=== PATIENT | female | born 1935 | race Caucasian/White ===

== ENCOUNTER → 2017-05-26 | Outpatient (CLI) | payer OTHER ==
[2015-11-03 21:06] VITALS: BP 125/70
[~2017-05-26] MED LIST: ACID REFLUX MED; ALPR0.25 PO; CHOLESTEROL MED; HYPERTENSION MED
--- NOTE | 2017-05-26 09:31 | RAD ---
Examination: Ultrasound left buttock History: History of left buttock lump Comparison: None available Findings: There is a 1.2 x 1.4 x 0.6 cm hypoechoic mass identified in the subcutaneous region of the left buttock with minimal blood flow around the lesion. There is no evidence of blood flow within the lesion. Impression: 1. 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 Close follow-up examination may be considered to document stability.
== END | disposition home or self-care (01) ==
LOC: US 07:38
PROVIDERS: ATTEND Physician Assistant Medical
DX: R22.2 Localized swelling, mass and lump, trunk (principal)
CPT/HCPCS: 76881

== ENCOUNTER → 2018-07-03 | Outpatient (CLI) | payer OTHER ==
[2015-11-03 21:06] VITALS: BP 125/70
--- NOTE | 2018-07-09 12:33 | RAD ---
DATE: 07/09/2018 EXAM: MAMMO SHANKAR SCREENING BILATERAL HISTORY: Routine screening COMPARISON: Previous mammogram from 2017 and 2014 This study was interpreted with the benefit of Computerized Aided Detection (CAD). FINDINGS: Breast Density: SCATTERED The breast parenchyma shows scattered fibroglandular densities. Breast parenchyma level B. The skin and nipples are within normal limits. Benign-appearing bilateral calcifications. Stable central right breast nodular density. No suspicious calcifications, spiculated mass or area of architectural distortion. IMPRESSION: No mammographic evidence mines. Stable mammogram. BI-RADS CATEGORY: 2 BENIGN FINDING(S) RECOMMENDED FOLLOW-UP: 12M 12 MONTH FOLLOW-UP PQRS compliance statement: Patient information was entered into a reminder system with a target due date for the next mammogram. Mammography is a sensitive method for finding small breast cancers, but it does not detect them all and is not a substitute for careful clinical examination. A negative mammogram does not negate a clinically suspicious finding and should not result in delay in biopsying a clinically suspicious abnormality. "Our facility is accredited by the [employer] Mammography [employer]."
== END | disposition home or self-care (01) ==
LOC: MAMMO 13:41
PROVIDERS: ATTEND Physician Assistant Medical
DX: Z12.31 Encounter for screening mammogram for malignant neoplasm of breast (principal)
CPT/HCPCS: 77063; 77067

== ENCOUNTER → 2019-07-04 | Outpatient (CLI) | payer OTHER ==
[2015-11-03 21:06] VITALS: BP 125/70
--- NOTE | 2019-07-05 16:42 | RAD ---
DATE: 07/04/2019. EXAM: MAMMO SHANKAR SCREENING BILATERAL. HISTORY: Routine mammographic screening. COMPARISON: 07/03/2018. This study was interpreted with the benefit of Computerized Aided Detection (CAD). FINDINGS: Breast Density: FATTY The breast parenchyma is primarily fatty replaced. Breast parenchyma level density A.. A small nodule superiorly on the right is stable. Vascular calcifications are benign. There are no suspicious masses, microcalcifications or architectural distortion. BI-RADS CATEGORY: 2 BENIGN FINDING(S). RECOMMENDED FOLLOW-UP: 12M 12 MONTH FOLLOW-UP. PQRS compliance statement: Patient information was entered into a reminder system with a target due date 07/04/2020 for the next mammogram. Mammography is a sensitive method for finding small breast cancers, but it does not detect them all and is not a substitute for careful clinical examination. A negative mammogram does not negate a clinically suspicious finding and should not result in delay in biopsying a clinically suspicious abnormality. "Our facility is accredited by the [employer] Mammography [employer]."
== END | disposition home or self-care (01) ==
LOC: MAMMO 13:04
PROVIDERS: ATTEND Physician Assistant Medical
DX: Z12.31 Encounter for screening mammogram for malignant neoplasm of breast (principal); N63.10 Unspecified lump in the right breast, unspecified quadrant
CPT/HCPCS: 77063; 77067

== ENCOUNTER 2019-10-07 11:33 | Emergency (ER) | payer MEDICARE, OTHER ==
[~2019-10-07] VITALS: Ht 160 cm; Wt 67.8 kg
--- NOTE | 2019-10-07 12:05 | PHYS DOC ---
Past History Past Medical History: Anxiety, Cancer, Hypertension, Other Additional Past Medical Histor: RECENT KIDNEY INFECTION/UTI Past Surgical History: Cancer Surgery, Hysterectomy, Other Additional Past Surgical Histo: RIGHT HIP Alcohol Use: Rarely Drug Use: None Adult General Chief Complaint Chief Complaint: MECHANICAL FALL HPI HPI 83-year-old female presents after fall at home. The patient has had a UTI rece ntly and is taking Cipro from her primary care physician. She is mostly. Bed the last 3 days. Today she was feeling a bit stronger, so she got up and was walking. She is taking small steps and was feeling okay when she fell. She is not sure if she got dizzy, passed out, or was just weak. She just remembers that she was falling that she in up on the floor. She fell against some statues on her way down and knocked him over. She is complaining of some bilateral low back pain. She continues to feel generally weak. She does not believe she hit her head. She is not on any blood thinners or anti-platelet medications. Review of Systems Review of Systems Constitutional: Fall. Denies fever or chills [] Eyes: Denies change in visual acuity, redness, or eye pain [] HENT: Denies nasal congestion or sore throat [] Respiratory: Denies cough or shortness of breath [] Cardiovascular: No additional information not addressed in HPI [] GI: Denies abdominal pain, nausea, vomiting, bloody stools or diarrhea [] : Denies dysuria or hematuria [] Musculoskeletal: Low back pain. [] Integument: Denies rash or skin lesions [] Neurologic: Denies headache, focal weakness or sensory changes [] Endocrine: Denies polyuria or polydipsia [] All other systems were reviewed and found to be within normal limits, except as documented in this note. Allergies Allergies Allergies Coded Allergies Type Severity Reaction Last Updated Verified Sulfa (Sulfonamide Antibiotics) Allergy Intermediate 03/11/16 Yes diazepam Allergy Intermediate 03/11/16 Yes promethazine Allergy Intermediate 03/11/16 Yes Physical Exam Physical Exam Constitutional: Well developed, well nourished, no acute distress, non-toxic appearance. [] HENT: Normocephalic, atraumatic, bilateral external ears normal, oropharynx moist, no oral exudates, nose normal. [] Eyes: PERRLA, EOMI, conjunctiva normal, no discharge. [] Neck: Normal range of motion, no tenderness, supple, no stridor. [] Cardiovascular:Heart rate regular rhythm, no murmur [] Lungs & Thorax: Bilateral breath sounds clear to auscultation [] Abdomen: Bowel sounds normal, soft, mild epigastric tenderness, no masses, no pulsatile masses. [] Skin: Warm, dry, no erythema, no rash. [] Back: Bilateral lumbar tenderness [] Extremities: No tenderness, no cyanosis, no clubbing, ROM intact, no edema. [] Neurologic: Alert and oriented X 3, normal motor function, normal sensory function, no focal deficits noted. [] Psychologic: Affect normal, judgement normal, mood normal. [] Current Patient Data Vital Signs Vital Signs Date Time Temp Pulse Resp B/P (MAP) Pulse Ox O2 Delivery O2 Flow Rate FiO2 10/07/19 11:40 98.3 84 24 134/62 (86) 93 Room Air EKG EKG Sinus rhythm, rate 79, normal axis, no ST elevations or depressions.[] Radiology/Procedures Radiology/Procedures [] Impressions: EXAM: 1. Chest one view. 2. Lumbar spine 3 views. HISTORY: Fall. COMPARISON: 01/27/2012. FINDINGS: An opacity in the right cardiophrenic angle and the left costophrenic angle correspond with an epicardial fat pads on prior CT. There are no confluent infiltrates. There is no pneumothorax or clear pleural effusion. The heart is at the upper limits of normal size. The aorta is calcified and tortuous. There is mild left glenohumeral osteoarthritis. There is a mild lumbar levoscoliosis. There is slight superior plate depression at T11, likely developmental or chronic. Degenerative disc disease is moderate to severe at L3-4 and mild at other lumbar levels. Facet osteoarthritis is moderate to severe from L3 through S1. IMPRESSION: 1. Borderline cardiomegaly. No confluent infiltrates. 2. Degenerative disc disease is moderate to severe at L3-4 and mild elsewhere in the lumbar spine. 3. Mild superior plate depression at T11 is likely chronic. Correlate for focal tenderness. Electronically signed by: Martínez Hackett MD (10/07/2019 12:51 PM) [facility] DICTATED AND SIGNED BY: BILL HACKETT MD DATE: 10/07/19 [id number] CC: KODY DE LA CRUZ DO; SAM SINGER ~ Course & Med Decision Making Course & Med Decision Making Pertinent Labs and Imaging studies reviewed. (See chart for details) The patient's labs are unremarkable. Her EKG is unremarkable. Her chest x-rays negative for acute findings. Her lumbar x-ray shows some mild endplate narrowing at T11. This is seen is likely chronic. She is other degenerative change in the lumbar spine. I believe the patient just has a strain of her lumbar due to her fall. I will give her pain medication for home. She is stable for discharge at this time. [] Dragon Disclaimer Dragon Disclaimer This electronic medical record was generated, in whole or in part, using a voice recognition dictation system. Departure Departure: Impression: Primary Impression: Fall Additional Impression: Lumbar strain Disposition: HOME, SELF-CARE Condition: STABLE Referrals: SAM SINGER (PCP) Patient Instructions: Low Back Strain with Rehab-[facility] Scripts Hydrocodone Bit/Acetaminophen (NORCO 5-325 TABLET) 1 Each Tablet 1 TAB PO PRN Q6HRS PRN for PAIN, #10 TAB 0 Refills Prov: KODY DE LA CRUZ DO 10/07/19 Problem Qualifiers Primary Impression: Fall Encounter type: initial encounter Qualified Codes: W19.XXXA - Unspecified fall, initial encounter Additional Impression: Lumbar strain Encounter type: initial encounter Qualified Codes: S39.012A - Strain of muscle, fascia and tendon of lower back, initial encounter KODY DE LA CRUZ DO Oct 07, 2019 12:05
[2019-10-07 12:18] LABS: BASO % 0 % (0-3); EOS % 0 % (0-3); HEMATOCRIT 37.8 % (36.0-47.0); HEMOGLOBIN 12.3 g/dL (12.0-15.5); LYMPH # 1.2 x10^3/uL (1.0-4.8); LYMPH % 11 % (24-48); MEAN CORPUSCULAR HEMOGLOBIN 29 pg (25-35); MEAN CORPUSCULAR HGB CONC 33 g/dL (31-37); MEAN CORPUSCULAR VOLUME 89 fL (79-100); MONO # 0.9 x10^3/uL (0.0-1.1); MONO % 8 % (0-9); NEUT # 9.4 x10^3uL (1.8-7.7); NEUT % 81 % (31-73); PLATELET COUNT 216 x10^3/uL (140-400); RED BLOOD COUNT 4.28 x10^6/uL (3.50-5.40); WHITE BLOOD COUNT 11.5 x10^3/uL (4.0-11.0)
--- NOTE | 2019-10-07 12:21 | EKG ---
[address] [address] Test Date: 2019-10-07 Test Time: 12:09:57 Pat Name: NANDA ERAZO Department: Room: Gender: F Teacher Tutor: : 1935 Requested By: KODY DE LA CRUZ Order Number: [id number] Reading MD: Measurements Intervals [facility] Rate: 79 P: 42 CA: 168 QRS: -8 QRSD: 82 T: 24 QT: 356 QTc: 409 Interpretive Statements SINUS RHYTHM ATRIAL PREMATURE COMPLEX(ES) LEFTWARD AXIS OTHERWISE NORMAL ECG RI6.01 No previous ECG available for comparison
[2019-10-07 12:25] LABS: CALCIUM 8.3 mg/dL (8.5-10.1); CREATININE 0.9 mg/dL (0.6-1.0); GFR 59.8; POTASSIUM 3.2 mmol/L (3.5-5.1)
[2019-10-07 12:31] LABS: ALBUMIN 3.1 g/dL (3.4-5.0); ALBUMIN/GLOBULIN RATIO 0.9 (1.0-1.7); TOTAL BILIRUBIN 1.1 mg/dL (0.2-1.0); TOTAL PROTEIN 6.7 g/dL (6.4-8.2)
--- NOTE | 2019-10-07 12:54 | RAD ---
EXAM: 1. Chest one view. 2. Lumbar spine 3 views. HISTORY: Fall. COMPARISON: 01/27/2012. FINDINGS: An opacity in the right cardiophrenic angle and the left costophrenic angle correspond with an epicardial fat pads on prior CT. There are no confluent infiltrates. There is no pneumothorax or clear pleural effusion. The heart is at the upper limits of normal size. The aorta is calcified and tortuous. There is mild left glenohumeral osteoarthritis. There is a mild lumbar levoscoliosis. There is slight superior plate depression at T11, likely developmental or chronic. Degenerative disc disease is moderate to severe at L3-4 and mild at other lumbar levels. Facet osteoarthritis is moderate to severe from L3 through S1. IMPRESSION: 1. Borderline cardiomegaly. No confluent infiltrates. 2. Degenerative disc disease is moderate to severe at L3-4 and mild elsewhere in the lumbar spine. 3. Mild superior plate depression at T11 is likely chronic. Correlate for focal tenderness. Electronically signed by: Martínez Hackett MD (10/07/2019 12:51 PM) [facility]
[2019-10-07] MEDS ORDERED: ONDANSETRON PF 4 MG/2 ML VIAL. IVP ONE (13:00)
[2019-10-07 13:32] VITALS: BP 88/57
[2019-10-07 14:12] LABS: BILIRUBIN,URINE NEG (NEG); CLARITY,URINE CLOUDY; COLOR,URINE YELLOW; GLUCOSE,URINE NEG (NEG)
[2019-10-07 14:13] LABS: BACTERIA,URINE FEW /HPF (0-FEW); NITRITE,URINE NEG (NEG); SQUAMOUS EPITHELIAL CELL,UR MANY /LPF
[2019-10-07] MEDS ORDERED: HYDR-3165 PO (14:19)
[2019-10-07] MEDS ORDERED: HYDROcodone/APAP 5/325MG 1 TAB TABLET ONE (14:24)
[2019-10-07] MEDS ORDERED: HYDROcodone/APAP 5/325MG 1 TAB TABLET PO ONE (14:30)
== END 2019-10-07 14:22 | disposition home or self-care (01) ==
LOC: ER 11:33
DX: S39.012A Strain of muscle, fascia and tendon of lower back, initial encounter (principal); M51.36 Other intervertebral disc degeneration, lumbar region; I10 Essential (primary) hypertension; Z90.710 Acquired absence of both cervix and uterus; Z98.890 Other specified postprocedural states; Z88.2 Allergy status to sulfonamides; Z88.8 Allergy status to other drugs, medicaments and biological substances; W18.39XA Other fall on same level, initial encounter; Y93.89 Activity, other specified; Y92.89 Other specified places as the place of occurrence of the external cause; Y99.8 Other external cause status
CPT/HCPCS: 36415; 71045; 72100; 80053; 81001; 84484; 85025; 93005; 96374; 96375; 99285; J2405; J3010

== ENCOUNTER 2019-10-11 10:41 | Inpatient (IN) | payer MEDICARE ==
[~2019-10-11 10:41] MED LIST changes: +HYDR-3165 PO
[2019-10-11 11:07] VITALS: BP 164/70
[2019-10-11] MEDS ORDERED: ONDANSETRON PF 4 MG/2 ML VIAL. IVP PRN (11:30)
[2019-10-11] MEDS: MORPHINE SULFATE 4 MG/ML DISP.SYRIN. IV PRN ×3 (11:47→21:33)
[2019-10-11] MEDS ORDERED: CHOL400C2 PO (12:08)
[2019-10-11] MEDS ORDERED: OMEP40CA45 PO (12:08)
[2019-10-11] MEDS ORDERED: ATOR20TA58 PO (12:08)
[2019-10-11] MEDS ORDERED: BENZ-8 PO (12:08)
[2019-10-11] MEDS ORDERED: ESCITALOPRAM OXA5 MG PO (12:08)
[2019-10-11] MEDS ORDERED: LISI10TA2 PO (12:08)
--- NOTE | 2019-10-11 12:14 | HP ---
ADMIT DATE: 10/11/2019 HISTORY OF PRESENT ILLNESS: The patient is an 84-year-old female patient who apparently fell on 10/07/2019 and was brought to the emergency room where she was evaluated. Has had the lumbar spine x-ray, which showed that the patient has borderline cardiomegaly, no confluent infiltrate, degenerative disk disease is moderate to severe at L3-L4 and mild elsewhere in the lumbar spine. She has mild superior plate depression at T11, it is likely chronic, correlate for focal tenderness. She apparently was discharged home on hydrocodone/APAP. She was also apparently at one point in time treated for UTI by her primary care physician; however, since her fall, she has this severe pain in her back. The pain has actually felt around her abdomen anteriorly. She also had had no bowel movement for the last 3 days. The pain is so uncomfortable that she cannot find a position of comfort; therefore, she was admitted from the clinic directly to the hospital for pain management. PAST MEDICAL HISTORY: Significant for hypertension, anxiety and depression. She has spinal stenosis, history of DVT and cervical cancer, recurrent UTIs and urinary incontinence, generalized fatigue. PAST SURGICAL HISTORY: Significant for bladder surgery, hysterectomy, appendectomy and vein ligation in 1972. She had a right hip fracture, status post repair; hip fracture in 2001. She has also tonsillectomy. FAMILY HISTORY: Both parents are . She has 2 sisters older and both . She does not know the cause of their . SOCIAL HISTORY: She is , has 2 sons and 1 daughter. She never smoked, does not drink alcohol. She lives with her . She is retired from [employer]. MEDICATIONS: She is currently on following medications: She is on vitamin D 800 mg tablet once a day, magnesium chloride 1 tablet once a day, benzonatate 100 mg 3 times a day, alprazolam 0.5 mg 3 times a day, escitalopram oxalate 5 mg daily, atorvastatin 40 mg at bedtime, omeprazole 40 mg once a day, lisinopril 10 mg once a day, potassium chloride 10 mEq once a day. ALLERGIES: She is apparently allergic to SULFA DRUGS, VALIUM as well as PHENERGAN. PHYSICAL EXAMINATION: GENERAL: When I saw her today, she looked well and was clearly in no apparent distress. She was pale, no jaundice or cyanosis. No lymphadenopathy, no thyromegaly. No jugular venous distention. No lower limb edema. VITAL SIGNS: Her heart rate was 92, blood pressure was 164/70, temperature 97.4, respiratory rate was 18 and oxygen saturation was 96%. HEAD, EYES, EARS, NOSE AND THROAT: Normocephalic, atraumatic. NECK: Supple. HEART: Showed normal first and second heart sounds. No gallop, rub or murmur. CHEST: Clear to auscultation. No crepitation or rhonchi. ABDOMEN: Distended, soft with tenderness mostly in the epigastric area. There is no guarding or rigidity. No organomegaly. All hernial orifice intact. Bowel sounds normal. NEUROLOGIC: She was awake, alert, responding appropriately. All cranial nerves intact. EXTREMITIES: She moves extremities with difficulty because of severe pain. LABORATORY DATA: Her most recent lab work done on 10/07/2019, showed a white cell count of 11,500, hemoglobin 12.3, hematocrit 37, MCV 89 and platelet count 261,000. Her chemistry at that time showed a serum sodium 140, potassium 3.2, chloride 102, bicarbonate 29, anion gap of 9, BUN 14, creatinine 0.9, estimated GFR was 59 mL per minute. Her glucose 120, calcium was 8.3. Total bilirubin, AST, ALT, alkaline phosphatase were normal. Total protein was 6.7, albumin 3.1. TSH was normal at 1.34. ASSESSMENT: This is an 84-year-old female patient with severe intractable back pain. On her CT scan done last time, she has what seemed to be a compression fracture of T11, which is roughly where she is pointing. PLAN: My plan is to repeat her lab work including a CBC and CMP, sed rate, CRP. I will add also serum lipase. I will also arrange for her to have a CT scan of the thoracic and lumbar spine without contrast and we will decide the further management accordingly. We will resume all her medications. We will also start her on SCDs or Lovenox for DVT prophylaxis. CLAY ABREU MD DR: IZZY/carlito JOB#: [id number] / [id number]
[2019-10-11 12:21] LABS: HEMOGLOBIN 12.9 g/dL (12.0-15.5); RED BLOOD COUNT 4.45 x10^6/uL (3.50-5.40); RED CELL DISTRIBUTION WIDTH 13.7 % (11.5-14.5); WHITE BLOOD COUNT 6.8 x10^3/uL (4.0-11.0)
[2019-10-11 12:31] LABS: CALCIUM 9.2 mg/dL (8.5-10.1); CREATININE 0.7 mg/dL (0.6-1.0); GFR 79.7; POTASSIUM 3.5 mmol/L (3.5-5.1)
[2019-10-11 12:36] LABS: ALBUMIN 3.1 g/dL (3.4-5.0); ALBUMIN/GLOBULIN RATIO 0.8 (1.0-1.7); TOTAL BILIRUBIN 0.6 mg/dL (0.2-1.0); TOTAL PROTEIN 7.2 g/dL (6.4-8.2)
[2019-10-11] MEDS: BENZONATATE 100 MG CAPSULE. PO SCH ×2 (13:00→21:31)
[2019-10-11] MEDS ORDERED: ALPR0.5T6 PO (13:01)
[2019-10-11] MEDS: HYDROcodone/APAP 5/325MG 1 TAB TABLET PO PRN ×2 (13:04→19:31)
--- NOTE | 2019-10-11 14:43 | RAD ---
CT thoracic and lumbar spine without contrast Indication: Severe intractable back pain Technique: Noncontrast CT imaging was performed of the thoracic and lumbar spine, multiplanar reconstruction images submitted. One or more of the following individualized dose reduction techniques were utilized for this examination: 1. Automated exposure control 2. Adjustment of the mA and/or kV according to patient size 3. Use of iterative reconstruction technique. Comparison: Chest radiographs 10/29/2013; 2011 CT abdomen pelvis exam Thoracic spine: Findings: Not present on previous radiographs, there is severe compression deformity of T10 greatest centrally, negligible osseous retropulsion inferiorly. There is mild central superior height loss of T7 vertebral body without osseous retropulsion. There is diffuse bone demineralization. There is accentuation of thoracic kyphosis. There is negligible posterior subluxation T12 relative L1. There is variable degenerative disc disease of mid to inferior thoracic levels. There is mild lumbar neural foramina compromise bilaterally at T10-11 mostly from height loss of T10, minimal narrowing such as on the left at T8-9. There are very small bilateral pleural effusions dependently. There is extensive coronary calcification. There is what likely represents some fibrotic change near the right lung apex. There is a small superior left lower lobe nodule image 18 series 2 about 4 mm. There is another left lower lobe nodule about 4 mm image 25 series 3. IMPRESSION: 1. There is severe T10 compression deformity with minimal osseous retropulsion inferiorly. This may be acute although MRI would more accurately determine chronicity. There is also age indeterminate, mild superior endplate concavity of T7. There is bone demineralization. 2. There are some small left lower lobe nodules, optional 12 month follow-up if increased risk factors for neoplasm as per revised Fleischner guidelines, otherwise no additional follow-up needed if low risk factors. There are very small dependent pleural effusions bilaterally. There is extensive coronary calcification. Lumbar spine FINDINGS: Lumbar vertebral body stature is maintained. There is advanced degenerative disc disease at L3-4 and L2-3 and to lesser degree at L4-5 and L5-S1. There is grade 1 anterior spondylolisthesis at L4-5 and to a lesser degree at L5-S1, facet degenerative change at these levels. There is bone demineralization. No acute lumbar spine fracture is identified. There is multilevel lumbar facet degenerative change. There is suspected at least moderate spinal stenosis at L3-4 likely with a greater degree of lateral recess stenosis bilaterally and also suspected moderate to severe spinal stenosis at L4-5. There is a lesser degree of lateral recess stenosis bilaterally at L2-3. There is moderate to severe narrowing of the neural foramina on the right at L3-4 and on the left at L4-5, to a somewhat lesser degree on the left at L5-S1. 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 There is atherosclerotic calcification of the abdominal aorta and branches. There is exophytic 4.8 cm hypodense lesion along the superior right kidney with internal density measurements of a cyst about 13 Hounsfield units, minimal associated calcifications. IMPRESSION: 1. No acute lumbar spine fracture is identified. 2. There is multilevel lumbar degenerative disc disease greatest L2-3 and L3-4. 3. There is grade 1 anterior spondylolisthesis L4-5 and L5-S1 at which there is facet degenerative change. 4. There is spinal stenosis greatest at L4-5 and L3-4. There is variable lumbar neural foramina compromise. 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 5. There is probable right renal cyst, although some associated small calcifications. Electronically signed by: Rafy Bailey MD (10/11/2019 2:40 PM) [id number]
[2019-10-11] MEDS: DOCUSATE SODIUM 100 MG CAPSULE PO PRN (15:34)
[2019-10-11 15:44] VITALS: BP 122/80
[2019-10-11 19:15] VITALS: BP 122/76
[2019-10-11] MEDS: ATORVASTATIN CALCIUM 20 MG TABLET PO SCH (21:30)
[2019-10-11] MEDS: ALPRAZolam 0.25 MG TABLET PO PRN (21:32)
[2019-10-11 23:50] VITALS: BP 98/60
[2019-10-12] MEDS: HYDROcodone/APAP 5/325MG 1 TAB TABLET PO PRN ×4 (02:39→21:21)
[2019-10-12 06:05] VITALS: BP 115/70
[2019-10-12] MEDS: MORPHINE SULFATE 4 MG/ML DISP.SYRIN. IV PRN ×4 (06:44→21:22)
[2019-10-12] MEDS: CITALOPRAM 10 MG TABLET. PO SCH (08:23)
[2019-10-12] MEDS: ALPRAZolam 0.25 MG TABLET PO PRN ×2 (08:23→21:20)
[2019-10-12] MEDS: BENZONATATE 100 MG CAPSULE. PO SCH ×3 (08:23→21:21)
[2019-10-12] MEDS: DOCUSATE SODIUM 100 MG CAPSULE PO PRN ×2 (08:24→21:21)
[2019-10-12] MEDS: PANTOPRAZOLE 40 MG TABLET. PO SCH (08:24)
[2019-10-12] MEDS: LISINOPRIL 10 MG TABLET PO SCH (08:25)
[2019-10-12] MEDS: CHOLECALCIFEROL (VITAMIN D3) 1,000 UNIT TABLET PO SCH (08:30)
[2019-10-12] MEDS ORDERED: ESCITALOPRAM OXALATE 5 MG PO SCH (09:00)
[2019-10-12] MEDS ORDERED: NON FORMULARY ITEM (Omeprazole 1 CAP) PO SCH (09:00)
[2019-10-12] MEDS ORDERED: CHOLECALCIFEROL PO SCH (09:00)
[2019-10-12 10:42] VITALS: BP 120/73
[2019-10-12 14:51] VITALS: BP 90/51
[2019-10-12] MEDS: CALCIUM CARB/VIT D3 500/200 TABLET PO SCH (15:35)
[2019-10-12 19:55] VITALS: BP 118/73
[2019-10-12] MEDS: ATORVASTATIN CALCIUM 20 MG TABLET PO SCH (21:21)
--- NOTE | 2019-10-12 22:14 | PN ---
DATE: 10/12/2019 SUBJECTIVE: The patient is resting flat in bed, continued to complain of severe pain. She did have a CT scan of the thoracic and lumbar spine and her thoracic spine showed that she has severe T10 compression deformity with minimal osseous retropulsion inferiorly. PHYSICAL EXAMINATION: GENERAL: When I examined her this morning, she looked pale. No jaundice, cyanosis or thyromegaly. No jugular venous distention. No limb edema. VITAL SIGNS: Her heart rate was 68, blood pressure 115/70, temperature was 97.9, respiratory rate was 16, and oxygen saturation was 98% on room air. The rest of clinical exam is stable. Her intake and output are incompletely recorded. LABORATORY DATA: Her lab work as of yesterday showed white cell count 6800, hemoglobin 12.9, hematocrit 39, MCV 88 and platelet count 282,000. Her chemistry showed a serum sodium 142, potassium 3.5, chloride 103, bicarbonate 32, anion gap of 7, BUN 19, creatinine 0.7, estimated GFR was 79 mL per minute. Her glucose 109, calcium was 9.2. Total bilirubin, AST, ALT, alkaline phosphatase were normal. Her C-reactive protein was __ mg/dL. ASSESSMENT: 1. Severe back pain due to severe T10 compression deformity with minimal osseous retropulsion inferiorly. The patient has multiple other medical problems including hypertension, anxiety and depression, spinal stenosis, history of deep venous thrombosis and cervical cancer, urinary incontinence. PLAN: To continue with current plan of management. I would check her vitamin D level, start her on calcium. We will transfer her tomorrow to [facility] with a plan to consult Dr. Cuevas for kyphoplasty. CLAY ABREU MD DR: IZZY/carlito JOB#: [id number] / [id number]
[2019-10-13] MEDS: MORPHINE SULFATE 4 MG/ML DISP.SYRIN. IV PRN (05:01)
[2019-10-13 06:51] VITALS: BP 125/88
[2019-10-13] MEDS: BENZONATATE 100 MG CAPSULE. PO SCH ×2 (07:48→12:15)
[2019-10-13] MEDS: DOCUSATE SODIUM 100 MG CAPSULE PO PRN (07:48)
[2019-10-13] MEDS: CHOLECALCIFEROL (VITAMIN D3) 1,000 UNIT TABLET PO SCH (07:48)
[2019-10-13] MEDS: CITALOPRAM 10 MG TABLET. PO SCH (07:48)
[2019-10-13] MEDS: PANTOPRAZOLE 40 MG TABLET. PO SCH (07:48)
[2019-10-13] MEDS: CALCIUM CARB/VIT D3 500/200 TABLET PO SCH ×2 (07:48→17:12)
[2019-10-13] MEDS: ALPRAZolam 0.25 MG TABLET PO PRN (07:49)
[2019-10-13] MEDS: HYDROcodone/APAP 5/325MG 1 TAB TABLET PO PRN ×2 (07:49→14:54)
[2019-10-13] MEDS: LISINOPRIL 10 MG TABLET PO SCH (07:49)
[2019-10-13] MEDS ORDERED: MAGNESIUM CITRATE 296 ML SOLUTION. PO PRN (08:00)
[2019-10-13] MEDS: HYDROmorphone PF 1 MG/ML DISP.SYRIN IV PRN ×4 (09:04→18:15)
[2019-10-13 10:35] LABS: BASO % 1 % (0-3); EOS # 0.2 x10^3/uL (0.0-0.7); EOS % 4 % (0-3); HEMATOCRIT 39.3 % (36.0-47.0); HEMOGLOBIN 12.8 g/dL (12.0-15.5); LYMPH # 1.9 x10^3/uL (1.0-4.8); LYMPH % 35 % (24-48); MEAN CORPUSCULAR HEMOGLOBIN 29 pg (25-35); MEAN CORPUSCULAR HGB CONC 33 g/dL (31-37); MEAN CORPUSCULAR VOLUME 89 fL (79-100); MONO # 0.5 x10^3/uL (0.0-1.1); MONO % 9 % (0-9); NEUT # 2.7 x10^3uL (1.8-7.7); NEUT % 51 % (31-73); PLATELET COUNT 301 x10^3/uL (140-400); RED BLOOD COUNT 4.45 x10^6/uL (3.50-5.40); RED CELL DISTRIBUTION WIDTH 13.4 % (11.5-14.5); WHITE BLOOD COUNT 5.3 x10^3/uL (4.0-11.0)
[2019-10-13 10:42] LABS: ALBUMIN 2.9 g/dL (3.4-5.0); ALBUMIN/GLOBULIN RATIO 0.7 (1.0-1.7); CALCIUM 9.1 mg/dL (8.5-10.1); CREATININE 0.8 mg/dL (0.6-1.0); GFR 68.3; POTASSIUM 3.7 mmol/L (3.5-5.1); TOTAL BILIRUBIN 0.4 mg/dL (0.2-1.0)
[2019-10-13 10:45] VITALS: BP 100/63
--- NOTE | 2019-10-13 11:26 | DS ---
DATE OF DISCHARGE: 10/13/2019 HOSPITAL COURSE: The patient is an 84-year-old female patient who was admitted directly from her primary care physician's office as she continued to complain of severe pain. We did a CT scan of her thoracic and lumbar spine, which showed that she has severe T10 compression fracture and she was admitted for pain management and a decision was made to transfer her to [facility] to consult the interventional radiologist for kyphoplasty. PHYSICAL EXAMINATION: GENERAL: When I saw her today, she looked well and was clearly in no apparent respiratory distress. No pallor, jaundice, cyanosis or thyromegaly. No jugular venous distention. No limb edema. VITAL SIGNS: Her heart rate was 75, blood pressure 125/88, temperature was 98.2, respiratory rate 20, and oxygen saturation was 94%. HEAD, EYES, EARS, NOSE AND THROAT: Showed normocephalic, atraumatic. NECK: Supple. HEART: Showed normal first and second heart sounds. No gallop or murmur. CHEST: Clear to auscultation. No crepitation or rhonchi. ABDOMEN: Distended, soft, nontender. No guarding or rigidity. No organomegaly. All hernial orifices intact. Bowel sounds normal. NEUROLOGIC: She is awake, alert, responding appropriately. All cranial nerves are intact. She moves extremities without difficulty, although she has hard time moving because of severe back pain. LABORATORY DATA: Her lab work showed a white cell count 6800, hemoglobin 12.9, hematocrit 39, MCV 88 and platelet count of 282,000. Her chemistry showed a serum sodium 142, potassium 3.5, chloride 103, bicarbonate 32, anion gap of 7, BUN 16, creatinine 0.7, estimated GFR was 80 mL per minute. Her glucose was 109, calcium was 9.2. Total bilirubin, AST, ALT, alkaline phosphatase were normal. C-reactive protein was 90. Total protein 7.2, albumin was 3.1. Serum lipase was 80. The CT scan of the thoracic spine showed that she has severe T10 compression deformity with minimal osseous retropulsion inferiorly, this may be acute, although MRI would more accurately determine the chronicity. There is also age indeterminate mild superior endplate concavity of T7. There is bone demineralization. There are some small left lower lobe nodules, optional 12-month followup, this increased risk factor for neoplasm as per revised Juan J guidelines. There are small dependent pleural effusion bilaterally. There is extensive coronary calcification, lumbar spine showed no acute lumbar spine fracture identified. There is multilevel lumbar degenerative disk disease, greatest at L2 and L3-L4. DISCHARGE MEDICATIONS: The patient was transferred to [facility] to continue with hydromorphone 1 mg IV every 3 hours, magnesium citrate 1 bottle daily for constipation, calcium with vitamin D 1 tablet twice a day, vitamin D 2000 international units once a day, citalopram hydrobromide 10 mg once a day, lisinopril 10 mg once a day, Protonix 40 mg daily, atorvastatin 20 mg at bedtime, benzonatate 100 mg 3 times a day, Colace 100 mg daily, hydrocodone/APAP 5/325 one tablet every 6 hours, alprazolam 0.5 mg twice a day, and ondansetron 4 mg IV every 4 hours. FINAL DISCHARGE DIAGNOSES: 1. Severe T10 compression fracture and transferred to [facility] for kyphoplasty. 2. Hypertension. 3. Anxiety and depression. 4. Spinal stenosis. 5. Deep vein thrombosis. 6. Cervical cancer. 7. Urinary incontinence. CLAY ABREU MD DR: IZZY/carlito JOB#: [id number] / [id number]
[2019-10-13 15:00] VITALS: BP 100/63
[2019-10-13 19:34] VITALS: BP 92/57
== END 2019-10-13 19:30 | disposition short-term general hospital (02) | DRG 543 ==
LOC: 1 SOUTH 10:41
PROVIDERS: ADMIT Internal Medicine; ATTEND Internal Medicine
DX: M48.54XA Collapsed vertebra, not elsewhere classified, thoracic region, initial encounter for fracture (principal); E44.0 Moderate protein-calorie malnutrition; F41.8 Other specified anxiety disorders; I10 Essential (primary) hypertension; M48.00 Spinal stenosis, site unspecified; W18.30XA Fall on same level, unspecified, initial encounter; F32.9 Major depressive disorder, single episode, unspecified; M51.36 Other intervertebral disc degeneration, lumbar region; F41.9 Anxiety disorder, unspecified; R32 Unspecified urinary incontinence; Z85.41 Personal history of malignant neoplasm of cervix uteri; Z86.718 Personal history of other venous thrombosis and embolism; Z87.81 Personal history of (healed) traumatic fracture; Z90.710 Acquired absence of both cervix and uterus; Z90.49 Acquired absence of other specified parts of digestive tract; Y93.89 Activity, other specified; Y92.89 Other specified places as the place of occurrence of the external cause; Y99.8 Other external cause status
CPT/HCPCS: 36415; 72128; 72131; 80053; 82306; 83690; 85025; 85027; 85651; 86140; J1170; J2270; J2405

== ENCOUNTER 2019-11-27 16:23 | Emergency (ER) | payer MEDICARE ==
[~2019-11-27] VITALS: Ht 160 cm; Wt 67.8 kg
[~2019-11-27 16:23] MED LIST changes: +ALPR0.5T6 PO; +ATOR20TA58 PO; +BENZ-8 PO; +CHOL400C2 PO; +ESCITALOPRAM OXA5 MG PO; +LISI10TA2 PO; +OMEP40CA45 PO
[2019-11-27] MEDS ORDERED: HYDROmorphone PF 1 MG/ML DISP.SYRIN IV ONE (17:00)
[2019-11-27] MEDS ORDERED: ONDANSETRON PF 4 MG/2 ML VIAL. IVP ONE (17:00)
--- NOTE | 2019-11-27 17:26 | RAD ---
CT head without contrast dated 11/27/2019. No comparison available. CLINICAL INDICATION: Headache. TECHNIQUE: Contiguous axial imaging the head was performed from skull base to vertex. No contrast administered. One or more of the following individualized dose reduction techniques were utilized for this examination: 1. Automated exposure control 2. Adjustment of the mA and/or kV according to patient size 3. Use of iterative reconstruction technique FINDINGS: Ventricles and sulci are mildly prominent for age. No midline shift or mass effect. Moderate patchy low density in the deep/subcortical periventricular white matter. No hemorrhage or extra axial collection. Posterior fossa and brainstem unremarkable. Visualized paranasal sinuses and mastoid air cells are clear. No apparent calvarial abnormality. IMPRESSION: 1. No evidence of acute intracranial hemorrhage or mass. 2. Mild to moderate chronic small vessel ischemic changes and atrophy. Electronically signed by: Stanley Lawler MD (11/27/2019 5:23 PM) [id number]
[2019-11-27 17:39] LABS: BASO % 1 % (0-3); EOS % 0 % (0-3); HEMATOCRIT 42.8 % (36.0-47.0); HEMOGLOBIN 14.1 g/dL (12.0-15.5); LYMPH # 1.1 x10^3/uL (1.0-4.8); LYMPH % 11 % (24-48); MEAN CORPUSCULAR HEMOGLOBIN 29 pg (25-35); MEAN CORPUSCULAR HGB CONC 33 g/dL (31-37); MEAN CORPUSCULAR VOLUME 88 fL (79-100); MONO # 0.3 x10^3/uL (0.0-1.1); MONO % 3 % (0-9); NEUT # 8.6 x10^3uL (1.8-7.7); NEUT % 86 % (31-73); PLATELET COUNT 213 x10^3/uL (140-400); RED BLOOD COUNT 4.88 x10^6/uL (3.50-5.40); RED CELL DISTRIBUTION WIDTH 14.7 % (11.5-14.5)
[2019-11-27 17:49] LABS: CALCIUM 9.2 mg/dL (8.5-10.1); CREATININE 0.8 mg/dL (0.6-1.0); GFR 68.3
[2019-11-27] MEDS ORDERED: cloNIDine HCL 0.1 MG TABLET PO ONE (18:00)
--- NOTE | 2019-11-27 18:03 | PHYS DOC ---
Past History Past Medical History: Anxiety, Cancer, Hypertension, Other Additional Past Medical Histor: RECENT KIDNEY INFECTION/UTI (ALLYSON VALENTINE Jr., DO) Past Surgical History: Cancer Surgery, Hysterectomy, Other Additional Past Surgical Histo: RIGHT HIP (ALLYSON VALENTINE Jr., DO) Alcohol Use: Rarely Drug Use: None (ALLYSON VALENTINE Jr., DO) Adult General Chief Complaint Chief Complaint: HEADACHE HPI HPI Patient is a 84-year-old female who presents with complaint of headache that started this morning. Patient rates pain to be a 10 out of 10 and states that she has photophobia as well as nausea and vomiting. She denies any chest pain or shortness of breath. Patient states that headache is worsened with movement. She states that nothing is improving her symptoms.[] (ALLYSON VALENTINE Jr., DO) Review of Systems Review of Systems Constitutional: Denies fever or chills [] Eyes: Denies change in visual acuity, redness, or eye pain [] Respiratory: Denies cough or shortness of breath [] Cardiovascular: No additional information not addressed in HPI [] Integument: Denies rash or skin lesions [] Neurologic: Complains of headache without focal weakness or sensory changes [] All other systems were reviewed and found to be within normal limits, except as documented in this note. (ALLYSON VALENTINE Jr., DO) Current Medications Current Medications Current Medications Medications (Trade) Dose Ordered Sig/Scottie Start Time Stop Time Status Last Admin Dose Admin Clonidine HCl (Catapres) 0.2 mg 1X ONCE 11/27/19 18:00 11/27/19 18:01 UNV Hydromorphone HCl (Dilaudid) 0.5 mg 1X ONCE 11/27/19 17:00 11/27/19 17:01 DC 11/27/19 17:20 0.5 MG Ondansetron HCl (Zofran) 4 mg 1X ONCE 11/27/19 17:00 11/27/19 17:01 DC 11/27/19 17:20 4 MG (ALLYSON VALENTINE Jr., DO) Allergies Allergies Allergies Coded Allergies Type Severity Reaction Last Updated Verified Sulfa (Sulfonamide Antibiotics) Allergy Intermediate 03/11/16 Yes diazepam Allergy Intermediate 03/11/16 Yes promethazine Allergy Intermediate 03/11/16 Yes (ALLYSON VALENTINE Jr., DO) Physical Exam Physical Exam Constitutional: Well developed, well nourished, in mild distress, non-toxic appearance. [] HENT: Normocephalic, atraumatic, bilateral external ears normal, oropharynx moist, no oral exudates, nose normal. [] Eyes: PERRLA, EOMI, conjunctiva normal, no discharge. [] Neck: Normal range of motion, no tenderness, supple, no stridor. [] Cardiovascular: Regular rate and rhythm[] Lungs & Thorax: Bilateral breath sounds clear to auscultation [] Abdomen: Bowel sounds normal, soft, no tenderness. [] Skin: Warm, dry, no erythema, no rash. [] Extremities: No tenderness, no cyanosis, no clubbing, ROM intact, no edema. [] Neurologic: Alert and oriented X 3, normal motor function, normal sensory function, no focal deficits noted. [] (ALLYSON VALENTINE Jr. DO) Current Patient Data Vital Signs Vital Signs Date Time Temp Pulse Resp B/P (MAP) Pulse Ox O2 Delivery O2 Flow Rate FiO2 11/27/19 17:44 90 18 180/102 (128) 91 Room Air 11/27/19 16:52 99.4 Lab Results Laboratory Tests Test 11/27/19 17:14 White Blood Count 10.0 x10^3/uL (4.0-11.0) Red Blood Count 4.88 x10^6/uL (3.50-5.40) Hemoglobin 14.1 g/dL (12.0-15.5) Hematocrit 42.8 % (36.0-47.0) Mean Corpuscular Volume 88 fL (79-100) Mean Corpuscular Hemoglobin 29 pg (25-35) Mean Corpuscular Hemoglobin Concent 33 g/dL (31-37) Red Cell Distribution Width 14.7 % (11.5-14.5) H Platelet Count 213 x10^3/uL (140-400) Neutrophils (%) (Auto) 86 % (31-73) H Lymphocytes (%) (Auto) 11 % (24-48) L Monocytes (%) (Auto) 3 % (0-9) Eosinophils (%) (Auto) 0 % (0-3) Basophils (%) (Auto) 1 % (0-3) Neutrophils # (Auto) 8.6 x10^3uL (1.8-7.7) H Lymphocytes # (Auto) 1.1 x10^3/uL (1.0-4.8) Monocytes # (Auto) 0.3 x10^3/uL (0.0-1.1) Eosinophils # (Auto) 0.0 x10^3/uL (0.0-0.7) Basophils # (Auto) 0.0 x10^3/uL (0.0-0.2) Platelet Estimate Pending Sodium Level 138 mmol/L (136-145) Potassium Level 4.0 mmol/L (3.5-5.1) Chloride Level 97 mmol/L (98-107) L Carbon Dioxide Level 27 mmol/L (21-32) Anion Gap 14 (6-14) Blood Urea Nitrogen 12 mg/dL (7-20) Creatinine 0.8 mg/dL (0.6-1.0) Estimated GFR (Cockcroft-Gault) 68.3 Glucose Level 132 mg/dL (70-99) H Calcium Level 9.2 mg/dL (8.5-10.1) (ALLYSON VALENTINE Jr. DO) EKG EKG [] (ALLYSON VALENTINE Jr. DO) EKG My interpretation EKG shows a sinus rhythm at 8 7 bpm. Left axis. No findings acute STEMI of contralateral changes. (ANTHONY CAROLINA MD) Radiology/Procedures Radiology/Procedures [] Impressions: PROCEDURE: CT HEAD WO CONTRAST CT head without contrast dated 11/27/2019. No comparison available. CLINICAL INDICATION: Headache. TECHNIQUE: Contiguous axial imaging the head was performed from skull base to vertex. No contrast administered. One or more of the following individualized dose reduction techniques were utilized for this examination: 1. Automated exposure control 2. Adjustment of the mA and/or kV according to patient size 3. Use of iterative reconstruction technique FINDINGS: Ventricles and sulci are mildly prominent for age. No midline shift or mass effect. Moderate patchy low density in the deep/subcortical periventricular white matter. No hemorrhage or extra axial collection. Posterior fossa and brainstem unremarkable. Visualized paranasal sinuses and mastoid air cells are clear. No apparent calvarial abnormality. IMPRESSION: 1. No evidence of acute intracranial hemorrhage or mass. 2. Mild to moderate chronic small vessel ischemic changes and atrophy. Electronically signed by: Stanley Lawler MD (11/27/2019 5:23 PM) [id number] (ALLYSON VALENTINE Jr., DO) Radiology/[place] [address] IMAGING REPORT Signed PATIENT: NANDA ERAZO ACCOUNT: [id number] : 1935 LOCATION: ER AGE: 84 SEX: F EXAM STATUS: REG ER ORD. PHYSICIAN: ALLYSON VALENTINE Jr., DO REASON: severe headache PROCEDURE: CT HEAD WO CONTRAST CT head without contrast dated 11/27/2019. No comparison available. CLINICAL INDICATION: Headache. TECHNIQUE: Contiguous axial imaging the head was performed from skull base to vertex. No contrast administered. One or more of the following individualized dose reduction techniques were utilized for this examination: 1. Automated exposure control 2. Adjustment of the mA and/or kV according to patient size 3. Use of iterative reconstruction technique FINDINGS: Ventricles and sulci are mildly prominent for age. No midline shift or mass effect. Moderate patchy low density in the deep/subcortical periventricular white matter. No hemorrhage or extra axial collection. Posterior fossa and brainstem unremarkable. Visualized paranasal sinuses and mastoid air cells are clear. No apparent calvarial abnormality. IMPRESSION: 1. No evidence of acute intracranial hemorrhage or mass. 2. Mild to moderate chronic small vessel ischemic changes and atrophy. Electronically signed by: Stanley Lawler MD (11/27/2019 5:23 PM) [id number] DICTATED AND SIGNED BY: STANLEY LAWLER MD DATE: 11/27/19 556 CC: ALLYSON VALENTINE Jr., DO; SAM SINGER ~ (ANTHONY CAROLINA MD) Course & Med Decision Making Course & Med Decision Making Pertinent Labs and Imaging studies reviewed. (See chart for details) [] (ALLYSON VALENTINE Jr., DO) Course & Med Decision Making Dr. Patel recommended transfer to [facility] See Dr. Valentine notes for details. Impression: 1. Headache- viral ? vs HTN ? 2. Accelerated HTN Discussed risks and benefits of spinal tap. Pt. currently declines spinal tap. Discussed presentation and labs with Dr. Orosco- will accept pt in transfer [facility] May be candidate for MRI, will obtain flu swabs prior transfer.. (ANTHONY CAROLINA MD) Dragon Disclaimer Dragon Disclaimer This electronic medical record was generated, in whole or in part, using a voice recognition dictation system. (ALLYSON VALENTINE Jr. DO) Departure Departure: Impression: Primary Impression: Hypertensive emergency Disposition: 02 XFER SHT-TRM HOSP Admitting Physician: Kayley Orosco (ALLYSON VALENTINE Jr. DO) Condition: IMPROVED Referrals: SAM SINGER (PCP) Sha Disclaimer This chart was dictated in whole or in part using Voice Recognition software in a busy, high-work load, and often noisy Emergency Department environment. It may contain unintended and wholly unrecognized errors or omissions. (ANTHONY CAROLINA MD) ALLYSON VALENTINE Jr., DO Nov 27, 2019 18:03 ANTHONY CAROLINA MD Nov 27, 2019 21:56
[2019-11-27 20:16] LABS: % LYMPHS 11 % (24-48); % MONOS 3 % (0-10); % SEGS 86 % (35-66); PLT ESTIMATE ADEQUATE (ADEQUATE)
[2019-11-27 20:33] VITALS: BP 167/80
[2019-11-27] MEDS ORDERED: HYDROmorphone PF 2 MG/ML VIAL IV ONE (21:00)
[2019-11-27 21:42] LABS: INFLUENZA A PATIENT NEGATIVE (NEGATIVE); INFLUENZA B PATIENT NEGATIVE (NEGATIVE)
--- NOTE | 2019-11-27 22:24 | EKG ---
[address] [address] Test Date: 2019-11-27 Test Time: 21:07:28 Pat Name: NANDA ERAZO Department: Room: Gender: F [employer]: : 1935 Requested By: ANTHONY CAROLINA Order Number: [id number] Reading MD: Measurements Intervals [place] Rate: 87 P: 10 DC: 176 QRS: -16 QRSD: 80 T: 8 QT: 366 QTc: 441 Interpretive Statements SINUS RHYTHM LEFTWARD AXIS NO SPECIFIC ECG ABNORMALITIES RI6.01 No previous ECG available for comparison
== END 2019-11-27 22:16 | disposition short-term general hospital (02) ==
LOC: ER 16:23
DX: I10 Essential (primary) hypertension (principal); Z88.2 Allergy status to sulfonamides; Z88.8 Allergy status to other drugs, medicaments and biological substances
CPT/HCPCS: 36415; 70450; 80048; 85007; 85025; 87804; 93005; 96374; 96375; 96376; J1170; J2405; 99285-25

== ENCOUNTER → 2020-07-06 | Outpatient (CLI) | payer MEDICARE, OTHER ==
--- NOTE | 2020-07-06 12:24 | RAD ---
BILATERAL SCREENING MAMMOGRAM, 3-D History: Routine screening. Comparison: 07/18/2016, 07/19/2017, 07/03/2018, 07/04/2019. Technique: MLO and CC digital tomosynthesis (3D) images obtained. Radiologist reviewed these images on dedicated workstation. Findings: Breast Tissue Density A : The breasts are almost entirely fatty. There are no dominant masses, suspicious microcalcifications, or architectural distortion. IMPRESSION: No mammographic evidence of malignancy. Recommend routine screening. BI-RADS category 1: Negative. The images were reviewed with computer-aided detection. Patient information is entered into reminder system with a target due date for the next screening mammogram. Mammography is the most sensitive method for finding small breast cancers, but it does not detect them all and is not a substitute for careful clinical examination. A negative mammogram does not negate a clinically suspicious finding and should not result in delay in biopsying a clinically suspicious abnormality. "Our facility is accredited by the [employer] Mammography Program." Electronically signed by: Harish Lopes MD (07/06/2020 12:21 PM) [id number]
== END ==
LOC: MAMMO 11:05
PROVIDERS: ATTEND Physician Assistant Medical
DX: Z12.31 Encounter for screening mammogram for malignant neoplasm of breast (principal)
CPT/HCPCS: 77063; 77067

== ENCOUNTER 2020-07-31 13:37 | Emergency (ER) | payer MEDICARE ==
[~2020-07-31] VITALS: Ht 160 cm; Wt 67.8 kg
--- NOTE | 2020-07-31 14:04 | PHYS DOC ---
Past History Past Medical History: Anxiety, Cancer, Hypertension, Other Additional Past Medical Histor: RECENT KIDNEY INFECTION/UTI Past Surgical History: Cancer Surgery, Hysterectomy, Other Additional Past Surgical Histo: RIGHT HIP Alcohol Use: Rarely Drug Use: None General Adult EDM: Chief Complaint: MECHANICAL FALL HPI: HPI: History obtained from patient. Patient is an 84-year-old female who presents with chief complaint of right hip and right mid axillary chest wall pain status post mechanical fall 5 days prior to arrival. States she was taking out the trash on an incline of her driveway. States she lost her balance and fell to the ground. She states she landed on her right hip. She has been able to ambulate with the assistance of a walker. States she does not typically ambulate with a walker. She states that her right hip pain is been fairly constant but she has been taking Aleve with minimal relief. She states yesterday she began developing right mid axillary chest wall pain. States it is worse when you press over the area. Denies shortness of breath. Denies fevers or cough. Denies taking any blood thinners. She states she does not think that she struck her head. She denies any new back pain. Denies abdominal pain. No other complaints Review of Systems: Review of Systems: Constitutional: Denies fever or chills Eyes: Denies change in visual acuity HENT: Denies nasal congestion or sore throat Respiratory: Denies cough or shortness of breath Cardiovascular: Denies chest pain or edema GI: Denies abdominal pain, nausea, vomiting, bloody stools or diarrhea : Denies dysuria Musculoskeletal: Positive for fall, right hip pain Integument: Denies rash Neurologic: Denies headache, focal weakness or sensory changes Endocrine: Denies polyuria or polydipsia Lymphatic: Denies swollen glands Psychiatric: Denies depression or anxiety Allergies: Allergies: Allergies Coded Allergies Type Severity Reaction Last Updated Verified Sulfa (Sulfonamide Antibiotics) Allergy Intermediate 03/11/16 Yes diazepam Allergy Intermediate 03/11/16 Yes promethazine Allergy Intermediate 03/11/16 Yes Physical Exam: PE: Physical Exam Trauma: Primary Survey: Airway: Intact. Speaks in normal voice and phonation. Breathing: Breath sounds are clear and equal bilaterally. Circulation: Regular rhythm, 2+ and symmetric radial, DP and PT pulses. Disability: GCS on arrival was 15. Pupils 3 mm, ERRL Exposure: Complete exposure obtained and described in detail below. Secondary Survey: General: Awake, alert, appropriate, and in no acute distress HENT: Atraumatic. TMs clear bilaterally, no hemotympanum. No periorbital tenderness or deformity. No obvious craniofacial trauma. Midface is stable. No apparent dental or tongue/oropharyngeal injury. No septal hematoma. Neck: C-spine: no midline tenderness. Without step-off, deformity, abrasion, ecchymosis, or other signs of trauma. Paraspinal musculature with no tenderness and/or hypertonicity. Eyes: Pupils 3 mm ERRL, EOMI grossly, no evidence of ocular trauma, conjunctivae normal Respiratory: CTAB without wheezing, rhonchi, or rales. No distress. Chest wall with mild right mid axillary tenderness to palpation. No crepitus, ecchymosis, or flail segment present. Cardiovascular: Regular rhythm without murmurs noted. 2+ and symmetric radial, DP and PT pulses. GI: Soft, non-tender, non-distended Musculoskeletal: T-spine: no midline tenderness. Without step-off, deformity, abrasion, ecchymosis, or other signs of trauma. Paraspinal musculature with no tenderness and/or hypertonicity. L-spine: no midline tenderness. Without step-off, deformity, abrasion, ecchymosis, or other signs of trauma. Paraspinal musculature with no tenderness and/or hypertonicity. RUE: Active ROM, no obvious deformity, no gross weakness or sensory deficits, warm & well-perfused LUE: Active ROM, no obvious deformity, no gross weakness or sensory deficits, w arm & well-perfused RLE: Active ROM, no obvious deformity, no gross weakness or sensory deficits, warm & well-perfused. Ecchymosis over the right patella. Slight abrasions overlying. LLE: Active ROM, no obvious deformity, no gross weakness or sensory deficits, warm & well-perfused Integument: Without abrasions, contusions, or lacerations. Neurologic: GCS on arrival as noted above. No obvious focal motor or sensory deficits on examination. Gait not assessed due to acuity of trauma assessment. Current Patient Data: Vital Signs: Vital Signs Date Time Temp Pulse Resp B/P (MAP) Pulse Ox O2 Delivery O2 Flow Rate FiO2 07/31/20 14:56 82 20 190/76 (114) 95 Room Air 07/31/20 14:36 96 Room Air 07/31/20 13:50 98.2 67 20 174/63 (100) 95 Room Air EKG: EKG: [] Radiology/Procedures: Radiology/Procedures: [address] [address] IMAGING REPORT Signed PATIENT: NANDA ERAZO ACCOUNT: [id number] : 1935 LOCATION: ER AGE: 84 SEX: F EXAM STATUS: REG ER ORD. PHYSICIAN: MELY HERNANDEZ DO REASON: fall, right sided CP and R hip pain PROCEDURE: CT HEAD AND CERVICAL SPINE WO Examination: CT HEAD AND CERVICAL SPINE WO History: Fall, pain, right sided CP and R hip pain / Spl Comparison/Correlation: 10/11/2019 CT thoracic spine without contrast Findings: Axial images of the head and cervical spine were obtained without contrast. Sagittal and coronal reformatted images of the cervical spine were provided. Atrophy and chronic degenerative changes) are present. No intracranial hemorrhage, midline shift, or mass effect. Small old right basal ganglia lacunar infarct is present. Cavernous carotid calcifications noted. Atlantoaxial joint degenerative remodeling is present. Sclerosis of the C6 vertebral body is unchanged. Mild C5-6 and C6-7 disc space narrowing is present with disc osteophyte complexes. Neural foramina are overall patent. Mild narrowing at C6-7 on the left is present. Degenerative changes of the temporomandibular joints bilaterally noted. Very mild interstitial thickening of the upper lung wilkinson similar to previous. Impression: No intracranial hemorrhage. Degenerative changes of the cervical spine again seen. No fracture or malalignment. PQRS Compliance Statement: One or more of the following individualized dose reduction techniques were utilized for this examination: 1. Automated exposure control 2. Adjustment of the mA and/or kV according to patient size 3. Use of iterative reconstruction technique Electronically signed by: Harish Moya MD (07/31/2020 2:45 PM) [facility] DICTATED AND SIGNED BY: HARISH MOYA MD DATE: 07/31/20 6845 CC: SAM SINGER; MELY HERNANDEZ DO ~MTH0 [address] [address] IMAGING REPORT Signed PATIENT: NANDA ERAZO ACCOUNT: [id number] : 1935 LOCATION: ER AGE: 84 SEX: F EXAM STATUS: REG ER ORD. PHYSICIAN: MELY HERNANDEZ DO REASON: r hip pain s/p fall PROCEDURE: KNEE RIGHT 3V Right hip 2 views with one view pelvis, right knee 3 views. HISTORY: Right hip pain after a fall, Single view was taken of the pelvis. There is no acute pelvic fracture. There is degenerative disc disease in the lower lumbar spine. There is no acute left hip fracture. AP and lateral views of the right hip show a total joint prosthesis in place. There is no acute fracture. There is vascular calcification. right knee 3 views were taken of the right knee. There is old healed patellar fracture. The wire sutures at the superior aspect of the patella has fracture. One of the pins through the patella has fractured with a separate fragment cephalad to to the patella. The other pin through the patella may have been pulled inferiorly. I do not have old studies for comparison. There is evidence of healing of the fracture. There is no acute fracture at the knee. There is no joint effusion. IMPRESSION: 1. No pelvic fracture. 2. 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 3. No acute right hip fracture. 4. Old healed patellar fracture with fracturing of the pin and the wire sutures about the patella. 5. No acute fracture at the right knee or joint effusion. Electronically signed by: William Rosa MD (07/31/2020 3:17 PM) [id number] DICTATED AND SIGNED BY: WILLIAM ROSA MD DATE: 07/31/20 1517 CC: SAM SINGER; MELY HERNANDEZ DO ~MTH0 [address] [id number] IMAGING REPORT Signed PATIENT: NANDA ERAZO ACCOUNT: [id number] : 1935 LOCATION: ER AGE: 84 SEX: F EXAM STATUS: REG ER ORD. PHYSICIAN: MELY HERNANDEZ DO REASON: fall, right sided CP and R hip pain PROCEDURE: CT CHEST ABDOMEN PELVIS WO Examination: CT CHEST ABDOMEN PELVIS WO History: Reason: fall, right sided CP and R hip pain / Spl. Instructions: / History: Comparison/Correlation: CT thoracic and lumbar spine 10/11/2019 Findings: Axial images of chest, abdomen, and pelvis were obtained without contrast. Sagittal and coronal reformatted images were provided. Marked coronary arterial calcification noted. No suspicious infiltrates. No suspicious pulmonary nodule or mass in the interval. Small nodule posterior to the distal thoracic aortic arch measuring 0.4 cm diameter is unchanged. Calcified granuloma involving the left lower lobe and the basilar aspect. No infiltrates. Very small pleural effusions are noted. No enlarged thoracic lymph nodes. Bony thorax is intact with no suspicious change. Old left posterior lower rib fractures are present. Liver, spleen, pancreas, adrenal glands are normal. Left renal superior pole cyst with few thin calcific septations noted and stable. Left renal atrophy and scarring noted. No ascites or pelvic free fluid. No enlarged abdominal or pelvic lymph nodes. Large subchondral lucency involving the right acetabulum adjacent to the right total hip prosthesis present and unchanged compared to 05/29/2012 CT abdomen and pelvis with contrast. T10 kyphoplasty is present. Urinary bladder is unremarkable. Hysterectomy noted. Diverticulosis is present. Moderate quantity of stool in the colon is present. No extraluminal gas or obstruction. No inflammatory change about the cecum. Impression: No infiltrate. No suspicious acute findings of the bony thorax. Right hip periprosthetic lucency is unchanged. No findings of suspicious abdominal or pelvic fluid collections. No findings to suggest organ laceration. Diverticulosis. PQRS Compliance Statement: One or more of the following individualized dose reduction techniques were utilized for this examination: 1. Automated exposure control 2. Adjustment of the mA and/or kV according to patient size 3. Use of iterative reconstruction technique Electronically signed by: Harish Moya MD (07/31/2020 3:22 PM) [facility] DICTATED AND SIGNED BY: HARISH MOYA MD DATE: 07/31/20 1522 CC: SAM SINGER; MELY HERNANDEZ DO ~MTH0 0 [][address] [address] IMAGING REPORT Signed PATIENT: NANDA ERAZO ACCOUNT: [id number] : 1935 LOCATION: ER AGE: 84 SEX: F EXAM STATUS: REG ER ORD. PHYSICIAN: MELY HERNANDEZ DO REASON: fall, right sided CP and R hip pain PROCEDURE: CT THORACIC SPINE WO CONTRAST Examination: CT THORACIC SPINE WO CONTRAST, CT LUMBAR SPINE WO CONTRAST History: Reason: fall, right sided CP and R hip pain / Spl. Instructions: / History: Comparison/Correlation: 10/11/2019 CT thoracic and lumbar spine Findings: Axial images of the thoracic and lumbar spine were obtained without contrast. Sagittal and coronal reformatted images were provided. Incidental note is made of disc space narrowing and sclerosis at C6-7. Alignment of the thoracic spine is unremarkable. T10 kyphoplasty is present in the interval. Vertebral body heights are adequate. Slight compression deformity of the T7 superior vertebral endplate is unchanged. Disc spaces are adequate overall adequate although there is narrowing at T10-11 similar to the previous exam. Minimal linear scarring or atelectasis at the posterior lung base is noted. Calcified granuloma involves the left lung base. Extensive coronary arterial calcification is diffusely present. Mitral annular calcification noted. Right renal superior pole cyst is present. Mild levo convexity of the lumbar spine is present. Extensive calcification involving the abdominal aorta and iliac arteries noted. Extensive calcification of the mesenteric arteries noted. T12-L1 Concentric disc bulge noted. L1-2: Mild disc space narrowing with vacuum phenomenon. Concentric disc bulge noted. L2-3: Moderate to severe disc space narrowing with vacuum phenomenon. Disc bulge with asymmetry to the left is evident. L3-4: Mild concentric disc bulge noted. Severe L3-4 disc space narrowing. Moderate right L3 -4 neural foraminal narrowing due to bony encroachment. Moderate spinal canal stenosis. Facet joint degenerative hypertrophy bilaterally. L4-5: Slight concentric disc bulge. Spinal canal stenosis is mild to moderate. Facet joint degenerative hypertrophy bilaterally. L5-S1: No significant disc bulge. Facet joint degenerative hypertrophy bilaterally. Tarlov cysts involving the sacrum noted. Impression: No acute fracture or malalignment. Advanced degenerative changes of the lumbar spine. Interval kyphoplasty at T10. Electronically signed by: Harish Moya MD (07/31/2020 3:02 PM) [facility] DICTATED AND SIGNED BY: HARISH MOYA MD DATE: 07/31/20 0590 CC: SAM SINGER; MARYMELY H DO ~MTH0 0 Heart Score: Risk Factors: Risk Factors: DM, Current or recent (<one month) smoker, HTN, HLP, family history of CAD, obesity. Risk Scores: Score 0 - 3: 2.5% MACE over next 6 weeks - Discharge Home Score 4 - 6: 20.3% MACE over next 6 weeks - Admit for Clinical Observation Score 7 - 10: 72.7% MACE over next 6 weeks - Early Invasive Strategies Course & Med Decision Making: Course & Med Decision Making Pertinent Labs and Imaging studies reviewed. (See chart for details) [] Patient is a very pleasant 84-year-old female who presents with chief complaint of right mid axillary chest wall pain and right hip pain status post chemical fall approximately 6 days ago. Initial vital signs unremarkable. Imaging has been negative for acute traumatic abnormality. She was able to ambulate emergency department unassisted. Overall do feel she is appropriate for discharge home. Patient does live with to monitor her closely. She is in agreement with this plan. She was given [id number] measures for pain control at home. She was instructed to follow-up with her primary care physician in the next 2 to 3 days. Return precautions discussed and understood. Stable for discharge home. I provided verbal discharge instructions regarding their emergency department diagnosis. If you had any diagnostic studies ( Labs or Xray's, CAT scan, Ultrasound ) have your PCP (Primary Care Physician) review them with you since there may be results that require further follow up or investigation. Prognosis, expected clinical course, and return precautions were reviewed. I answered the patients questions and instructed them to return if any new or worsening symptoms develop. The patient expressed understanding of the instructions and reported that all of their questions had been answered. Sha Disclaimer: Sha Disclaimer: This electronic medical record was generated, in whole or in part, using a voice recognition dictation system. Departure Departure: Impression: Primary Impression: Fall Qualified Codes: W19.XXXA - Unspecified fall, initial encounter Additional Impressions: Chest wall pain Right hip pain Disposition: 01 DC HOME SELF CARE/HOMELESS Condition: STABLE Referrals: SAM SINGER (PCP) Patient Instructions: Fall Prevention and Home Safety Additional Instructions: Please follow-up with your primary care physician in the next 2 to 3 days. Scripts Acetaminophen (TYLENOL) 325 Mg Tablet 1-2 TAB PO QID for pain for 7 Days, #30 TAB 2 Refills Prov: MELY HERNANDEZ DO 07/31/20 Lidocaine (Lidocaine) 1 Each Adh..patch 1 EACH TP DAILY for pain for 5 Days, #5 PATCH 4%. 12 hours on, 12 hours off. Prov: MELY HERNANDEZ DO 07/31/20 MELY HERNANDEZ DO Jul 31, 2020 14:04
[2020-07-31] MEDS ORDERED: HYDROcodone/APAP 5/325MG 1 TAB TABLET PO ONE (14:15)
--- NOTE | 2020-07-31 14:48 | RAD ---
Examination: CT HEAD AND CERVICAL SPINE WO History: Fall, pain, right sided CP and R hip pain / Spl Comparison/Correlation: 10/11/2019 CT thoracic spine without contrast Findings: Axial images of the head and cervical spine were obtained without contrast. Sagittal and coronal reformatted images of the cervical spine were provided. Atrophy and chronic degenerative changes) are present. No intracranial hemorrhage, midline shift, or mass effect. Small old right basal ganglia lacunar infarct is present. Cavernous carotid calcifications noted. Atlantoaxial joint degenerative remodeling is present. Sclerosis of the C6 vertebral body is unchanged. Mild C5-6 and C6-7 disc space narrowing is present with disc osteophyte complexes. Neural foramina are overall patent. Mild narrowing at C6-7 on the left is present. Degenerative changes of the temporomandibular joints bilaterally noted. Very mild interstitial thickening of the upper lung wilkinson similar to previous. Impression: No intracranial hemorrhage. Degenerative changes of the cervical spine again seen. No fracture or malalignment. PQRS Compliance Statement: One or more of the following individualized dose reduction techniques were utilized for this examination: 1. Automated exposure control 2. Adjustment of the mA and/or kV according to patient size 3. Use of iterative reconstruction technique Electronically signed by: Harish Lopes MD (07/31/2020 2:45 PM) [facility]
--- NOTE | 2020-07-31 15:05 | RAD ---
Examination: CT THORACIC SPINE WO CONTRAST, CT LUMBAR SPINE WO CONTRAST History: Reason: fall, right sided CP and R hip pain / Spl. Instructions: / History: Comparison/Correlation: 10/11/2019 CT thoracic and lumbar spine Findings: Axial images of the thoracic and lumbar spine were obtained without contrast. Sagittal and coronal reformatted images were provided. Incidental note is made of disc space narrowing and sclerosis at C6-7. Alignment of the thoracic spine is unremarkable. T10 kyphoplasty is present in the interval. Vertebral body heights are adequate. Slight compression deformity of the T7 superior vertebral endplate is unchanged. Disc spaces are adequate overall adequate although there is narrowing at T10-11 similar to the previous exam. Minimal linear scarring or atelectasis at the posterior lung base is noted. Calcified granuloma involves the left lung base. Extensive coronary arterial calcification is diffusely present. Mitral annular calcification noted. Right renal superior pole cyst is present. Mild levo convexity of the lumbar spine is present. Extensive calcification involving the abdominal aorta and iliac arteries noted. Extensive calcification of the mesenteric arteries noted. T12-L1 Concentric disc bulge noted. L1-2: Mild disc space narrowing with vacuum phenomenon. Concentric disc bulge noted. L2-3: Moderate to severe disc space narrowing with vacuum phenomenon. Disc bulge with asymmetry to the left is evident. L3-4: Mild concentric disc bulge noted. Severe L3-4 disc space narrowing. Moderate right L3 -4 neural foraminal narrowing due to bony encroachment. Moderate spinal canal stenosis. Facet joint degenerative hypertrophy bilaterally. L4-5: Slight concentric disc bulge. Spinal canal stenosis is mild to moderate. Facet joint degenerative hypertrophy bilaterally. L5-S1: No significant disc bulge. Facet joint degenerative hypertrophy bilaterally. Tarlov cysts involving the sacrum noted. Impression: No acute fracture or malalignment. Advanced degenerative changes of the lumbar spine. Interval kyphoplasty at T10. Electronically signed by: Harish Lopes MD (07/31/2020 3:02 PM) [facility]
--- NOTE | 2020-07-31 15:20 | RAD ---
Right hip 2 views with one view pelvis, right knee 3 views. HISTORY: Right hip pain after a fall, Single view was taken of the pelvis. There is no acute pelvic fracture. There is degenerative disc disease in the lower lumbar spine. There is no acute left hip fracture. AP and lateral views of the right hip show a total joint prosthesis in place. There is no acute fracture. There is vascular calcification. right knee 3 views were taken of the right knee. There is old healed patellar fracture. The wire sutures at the superior aspect of the patella has fracture. One of the pins through the patella has fractured with a separate fragment cephalad to to the patella. The other pin through the patella may have been pulled inferiorly. I do not have old studies for comparison. There is evidence of healing of the fracture. There is no acute fracture at the knee. There is no joint effusion. IMPRESSION: 1. No pelvic fracture. 2. 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 3. No acute right hip fracture. 4. Old healed patellar fracture with fracturing of the pin and the wire sutures about the patella. 5. No acute fracture at the right knee or joint effusion. Electronically signed by: William Rosa MD (07/31/2020 3:17 PM) [id number]
--- NOTE | 2020-07-31 15:25 | RAD ---
Examination: CT CHEST ABDOMEN PELVIS WO History: Reason: fall, right sided CP and R hip pain / Spl. Instructions: / History: Comparison/Correlation: CT thoracic and lumbar spine 10/11/2019 Findings: Axial images of chest, abdomen, and pelvis were obtained without contrast. Sagittal and coronal reformatted images were provided. Marked coronary arterial calcification noted. No suspicious infiltrates. No suspicious pulmonary nodule or mass in the interval. Small nodule posterior to the distal thoracic aortic arch measuring 0.4 cm diameter is unchanged. Calcified granuloma involving the left lower lobe and the basilar aspect. No infiltrates. Very small pleural effusions are noted. No enlarged thoracic lymph nodes. Bony thorax is intact with no suspicious change. Old left posterior lower rib fractures are present. Liver, spleen, pancreas, adrenal glands are normal. Left renal superior pole cyst with few thin calcific septations noted and stable. Left renal atrophy and scarring noted. No ascites or pelvic free fluid. No enlarged abdominal or pelvic lymph nodes. Large subchondral lucency involving the right acetabulum adjacent to the right total hip prosthesis present and unchanged compared to 05/29/2012 CT abdomen and pelvis with contrast. T10 kyphoplasty is present. Urinary bladder is unremarkable. Hysterectomy noted. Diverticulosis is present. Moderate quantity of stool in the colon is present. No extraluminal gas or obstruction. No inflammatory change about the cecum. Impression: No infiltrate. No suspicious acute findings of the bony thorax. Right hip periprosthetic lucency is unchanged. No findings of suspicious abdominal or pelvic fluid collections. No findings to suggest organ laceration. Diverticulosis. PQRS Compliance Statement: One or more of the following individualized dose reduction techniques were utilized for this examination: 1. Automated exposure control 2. Adjustment of the mA and/or kV according to patient size 3. Use of iterative reconstruction technique Electronically signed by: Harish Lopes MD (07/31/2020 3:22 PM) [facility]
[2020-07-31 15:45] VITALS: BP 177/96
[2020-07-31] MEDS ORDERED: ACET325T9 PO (15:45)
[2020-07-31] MEDS ORDERED: LIDO1ADH63 TP (15:45)
== END 2020-07-31 15:50 | disposition home or self-care (01) ==
LOC: ER 13:37
DX: G89.11 Acute pain due to trauma (principal); R07.89 Other chest pain; M25.551 Pain in right hip; M25.561 Pain in right knee; F41.9 Anxiety disorder, unspecified; I10 Essential (primary) hypertension; Z85.9 Personal history of malignant neoplasm, unspecified; Z98.890 Other specified postprocedural states; Z90.710 Acquired absence of both cervix and uterus; Z88.2 Allergy status to sulfonamides; Z88.8 Allergy status to other drugs, medicaments and biological substances; W18.39XA Other fall on same level, initial encounter; Y93.89 Activity, other specified; Y92.89 Other specified places as the place of occurrence of the external cause; Y99.8 Other external cause status
CPT/HCPCS: 70450; 71250; 72125; 72128; 72131; 73502; 73562; 74176; 99285

== ENCOUNTER → 2020-09-29 | Outpatient (CLI) | payer MEDICARE ==
[~2020-09-29] MED LIST changes: +ACET325T9 PO; +LIDO1ADH63 TP
--- NOTE | 2020-09-29 16:16 | RAD ---
US HEAD/NECK SOFT TISSUE History: Reason: LUMP ON NECK / Spl. Instructions: / History: Comparison: None. Technique: Multiple grayscale and color Doppler images of the neck soft tissues. Findings: Ultrasound performed of the left anterior neck in the region of the patient's palpable concern. Direc tly underneath the palpable abnormality is the right carotid bifurcation. Small benign-appearing lymp h node superior to this region measures 0.5 x 0.5 x 0.2 cm. IMPRESSION: 1. 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 Electronically signed by: Cliff Caceres DO (09/29/2020 4:14 PM) [id number]
== END ==
LOC: US 09:35
PROVIDERS: ATTEND Physician Assistant Medical
DX: R22.1 Localized swelling, mass and lump, neck (principal)
CPT/HCPCS: 76536